=== PATIENT | female | born 1970 | race Caucasian/White ===

== ENCOUNTER → 2017-04-30 | Outpatient (CLI) | payer OTHER | LOC: MC.RAD 08:00 | DX: Z12.31 Encounter for screening mammogram for malignant neoplasm of breast (principal) ==

== ENCOUNTER → 2019-07-28 | Outpatient (CLI) | payer OTHER | LOC: MC.RAD 15:51 | DX: Z12.31 Encounter for screening mammogram for malignant neoplasm of breast (principal) ==

== ENCOUNTER → 2022-05-04 | Outpatient (CLI) | payer OTHER | LOC: MC.RAD 06:50 | DX: R91.8 Other nonspecific abnormal finding of lung field (principal); N64.59 Other signs and symptoms in breast ==

== ENCOUNTER → 2022-05-15 | Outpatient (CLI) | payer OTHER | LOC: MC.RAD 07:57 | DX: N63.42 Unspecified lump in left breast, subareolar (principal) ==